=== PATIENT | male | born 1970 | race Caucasian/White ===

== ENCOUNTER 2022-06-22 09:01 | Day surgery (SDC) | payer OTHER ==
[2022-06-15 15:00] VITALS: BMI 26.6
[2022-06-22] MEDS ORDERED: ONDANSETRON 4 MG/2 ML VIAL IVPUSH PRN (10:32)
[2022-06-22] MEDS ORDERED: oxyCODONE HCL 5 MG TABLET PO PRN ×2 (10:32)
[2022-06-22] MEDS ORDERED: ACETAMINOPHEN 325 MG TABLET (FP) PO PRN (10:32)
[2022-06-22] MEDS ORDERED: MIDAZOLAM HCL 2 MG/2 ML SINGLE DOSE VIAL ONE ×2 (10:42→11:12)
[2022-06-22] MEDS ORDERED: PROPOFOL 20 ML ONE ×4 (10:42→12:16)
[2022-06-22] MEDS ORDERED: LACTATED RINGERS SOLUTION 1,000 ML IV SCH (10:45)
[2022-06-22] MEDS ORDERED: ACETAMINOPHEN INJECTION 100 ML IVPB ONE (10:49)
[2022-06-22] MEDS ORDERED: BUPIVACAINE HCL/PF 0.5% (5MG/ML) 10 ML VIAL ONE (10:49)
[2022-06-22] MEDS ORDERED: ONDANSETRON 4 MG/2 ML VIAL ONE (11:10)
[2022-06-22] MEDS ORDERED: DEXAMETHASONE SOD PHOSPHATE 4 MG/1 ML VIAL ONE (11:10)
[2022-06-22] MEDS ORDERED: BUPIVACAINE HCL/PF 0.25% (2.5MG/ML) 10 ML VIAL ONE (12:03)
[2022-06-22 13:30] VITALS: TEMP 97.4
[2022-06-22 13:48] VITALS: RESP 18
[2022-06-22 14:56] VITALS: BP 116/74; PULSE 84
== END 2022-06-22 14:56 | disposition home or self-care (01) ==
LOC: FASU 09:01
PROVIDERS: ATTEND Orthopaedic Surgery Sports Medicine
PROC: 0LB Tendons, Excision (ICD-10-PCS; principal; 2022-06-22 11:19)
DX: M76.62 Achilles tendinitis, left leg (principal); M79.5 Residual foreign body in soft tissue; M1A.0721 Idiopathic chronic gout, left ankle and foot, with tophus (tophi)
CPT/HCPCS: 87070; 87186; 87205; 88300-TC; 88305-TC; 94760